=== PATIENT | female | born 1960 ===

== ENCOUNTER 2021-02-11 14:41 | Outpatient (CLI) | payer OTHER | END 2021-02-11 14:42 | disposition home or self-care (01) | LOC: ULT 14:41 | PROVIDERS: ATTEND Internal Medicine Hematology & Oncology | DX: R60.0 Localized edema (principal); M79.601 Pain in right arm; I82.621 Acute embolism and thrombosis of deep veins of right upper extremity; I82.611 Acute embolism and thrombosis of superficial veins of right upper extremity ==